=== PATIENT | female | born 1955 | race Caucasian/White ===

== ENCOUNTER 2023-06-01 06:05 | Day surgery (SDC) | payer OTHER ==
[~2023-06-01] VITALS: Ht 160 cm; Wt 88.9 kg
[2023-06-01] MEDS ORDERED: fentaNYL citrate 0.05 MG/ML VIAL ONE (08:55)
[2023-06-01] MEDS ORDERED: MIDAZOLAM 5 MG/5 ML VIAL ONE (08:56)
[2023-06-01] MEDS: fentaNYL citrate 0.05 MG/ML VIAL IVP ONE (09:35)
== END 2023-06-01 10:20 | disposition home or self-care (01) ==
LOC: MDS 06:05 → MMU 06:58 → MDS 10:20
PROVIDERS: ATTEND Internal Medicine Gastroenterology
DX: Z12.11 Encounter for screening for malignant neoplasm of colon (principal); K57.30 Diverticulosis of large intestine without perforation or abscess without bleeding; E78.00 Pure hypercholesterolemia, unspecified; I10 Essential (primary) hypertension; Z90.49 Acquired absence of other specified parts of digestive tract; Z79.899 Other long term (current) drug therapy
CPT/HCPCS: 45378; J3010; J2250